=== PATIENT | female | born 1955 | race Two or more races ===

== ENCOUNTER 2024-10-12 09:06 | Inpatient (IN) | payer OTHER, MEDICAID ==
[~2024-10-12] VITALS: Ht 165.1 cm; Wt 69.0 kg
--- NOTE | 2024-10-12 09:15 | ECG ---
[facility] Test Date: 2024-10-12 Test Time: 09:13:46 Pat Name: LINDA SIBLEY Department: ER Room: [address] [place] [address] Gender: F Sas Clinical Programmer: FLORY : 1955 Requested By: LYNNE MERCADO Order Number: [id number] Reading MD: Sadi Esparza Measurements Intervals [place] Rate: 78 P: 20 CA: 152 QRS: -10 QRSD: 87 T: 41 QT: 365 QTc: 416 Interpretive Statements Sinus rhythm Ventricular trigeminy RSR' in V1 or V2, right VCD or RVH Borderline T abnormalities, anterior leads Electronically Signed On 10-12-2024 17:46:40 PDT by Sadi Esparza Please click the below link to view image of tracing.
--- NOTE | 2024-10-12 09:40 | ED.PDOC ---
HPI Comments 68 year old female presents to the ED with a chief complaint of chest pain onset 3 days. Patient states she has been experiencing intermittent chest pain for the past 3 days, pain worsen last night and has been constant since last night. She noticed pain is radiating to LT arm, describes pain as a squeezing/pressure sensation. PMHx HTN, arthritis. Denies shortness of breath, dizziness, headache, blurry vision, nausea, vomiting, diarrhea, abdominal pain, fever, chills. No other symptoms or modifying factors present at this time. Chief Complaint: Chest Pain Time Seen by MD: 09:15 Reviewed Notes: Medications, Allergies Allergies: Coded Allergies: NO KNOWN ALLERGIES (Unverified , 10/12/24) Information Source: Patient Mode of Arrival: Ambulatory Severity: Moderate Timing: Days Duration: Intermittent Prehospital treatment: None Location: Chest (L) Radiation: Arm (L) Quality: Squeezing, Pressure Onset: At Rest Cardiac Risk Factors: HTN PE Risk Factors: None History of: None Modifying Factors: Nothing Associated Signs and Symptoms: Other (Lt arm pain) Past Medical History PAST MEDICAL HISTORY: Arthritis, HTN Surgical History: Denies all surgeries [employer]IO DIVISION CAPTAIN History: No Pertinent [employer]IO [employer] CAPTAIN History Family History Family History: Unknown Social History Smoker: Non-Smoker Alcohol: Denies ETOH Use Drugs: Denies Drug Use Lives In: Home Constitutional: denies: chills, diaphoresis, fatigue, fever, malaise, sweats, weakness, others EENTM: denies: blurred vision, double vision, ear bleeding, ear discharge, ear drainage, ear pain, ear ringing, eye pain, eye redness, hearing loss, mouth pain, mouth swelling, nasal discharge, nose bleeding, nose congestion, nose pain, photophobia, tearing, throat pain, throat swelling, voice changes, others Respiratory: denies: cough, hemoptysis, orthopnea, SOB at rest, shortness of breath, SOB with excertion, stridor, wheezing, others Cardiovascular: reports: chest pain; denies: dizzy spells, diaphoresis, Dyspnea on exertion, edema, irregular heart beat, left arm pain, lightheadedness, palpitations, PND, syncope, others Gastrointestinal: denies: abdomen distended, abdominal pain, blood streaked bowels, constipated, diarrhea, dysphagia, difficulty swallowing, hematemesis, melena, nausea, poor appetite, poor fluid intake, rectal bleeding, rectal pain, vomiting, others Genitourinary: denies: abnormal vagina bleeding, burning, dyspareunia, dysuria, flank pain, frequency, hematuria, incontinence, pain, , vagina discharge, urgency, others Neurological: denies: dizziness, fainting, headache, left sided numbness, left sided weakness, numbness, paresthesia, pre-existing deficit, right sided numbness, right sided weakness, seizure, speech problems, tingling, tremors, weakness, others Musculoskeletal: reports: others (LT arm pain); denies: back pain, gout, joint pain, joint swelling, muscle pain, muscle stiffness, neck pain Integumetry: denies: bruises, change in color, change in hair/nails, dryness, laceration, lesions, lumps, rash, wounds, others Allergic/Immunocompromised: denies: Difficulty Healing, Frequent Infections, Hives, Itching, others Hematologic/Lymphatic: denies: anemia, blood clots, easy bleeding, easy bruising, swollen glands, others Endocrine: denies: excessive hunger, excessive sweating, excessive thirst, excessive urination, flushing, intolerance to cold, intolerance to heat, unexplained weight gain, unexplained weight loss, others Psychiatric: denies: anxiety, bipolar disorder, depression, hopeless, panic disorder, schizophrenia, sleepless, suicidal, others All Other Systems: Reviewed and Negative Physical Exam General Appearance: No Apparent Distress, Normal HEENT: Normal ENT Inspection, Pharynx Normal, TMs Normal Neck: Full Range of Motion, Non-Tender, Normal, Normal Inspection Respiratory: Chest Non-Tender, Lungs Clear, No Accessory Muscle Use, No Respiratory Distress, Normal Breath Sounds Cardiovascular: No Edema, No JVD, No Murmur, No Gallop, Normal Peripheral Pulses, Regular Rate/Rhythm Breast Exam: Deferred Gastrointestinal: No Organomegaly, Non Tender, No Pulsatile Mass, Normal Bowel Sounds, Soft Genitalia: Deferred Pelvic: Deferred Rectal: Deferred Extremities: No calf tenderness, Normal capillary refill, Normal inspection, Normal range of motion, Non-tender, No pedal edema Musculoskeletal : Apperance: Normal 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 Was a procedure done?: No CP Differential Dx Differential Diagnosis: N/A Differential Diagnosis: N/A Differential Diagnosis: Angina, Aortic dissection, Chest Wall Pain, Cholelithiasis, Costochondritis, Esophageal reflux/spasm, Gastritis, Myocardial Infarction, Pericarditis, Pneumonia, Pneumothorax, Pulmonary Embolus X-Ray, Labs, Meds, VS Vital Signs Date Time Temp Pulse Resp B/P (MAP) Pulse Ox O2 Delivery O2 Flow Rate FiO2 10/12/24 11:21 120/55 10/12/24 11:19 98.8 50 16 120/55 (76) 98 98.8 10/12/24 10:06 130/88 10/12/24 09:29 88 10/12/24 09:29 98.0 88 20 130/88 (102) 98 98.0 10/12/24 09:22 98.3 60 19 138/63 (88) 96 98.3 10/12/24 09:13 78 Lab Test 10/12/24 10:03 10/12/24 09:10 Range/Units Troponin I High Sensitivity < 3 L < 3 L </=34 ng/L White Blood Count 6.6 4.4-10.8 10^3/uL Red Blood Count 4.71 4.0-5.20 10^6/uL Hemoglobin 13.7 12.2-16.2 g/dL Hematocrit 41.8 36.0-46.0 % Mean Corpuscular Volume 88.6 80.0-100.0 fL Mean Corpuscular Hemoglobin 29.1 28.0-32.0 pg Mean Corpuscular Hemoglobin Concent 32.9 32.0-36.0 g/dL Red Cell Distribution Width 13.9 11.8-14.3 % Platelet Count 286 140-450 10^3/uL Mean Platelet Volume 7.5 6.9-10.8 fL Neutrophils (%) (Auto) 54.2 37.0-80.0 % Lymphocytes (%) (Auto) 31.9 10.0-50.0 % Monocytes (%) (Auto) 10.9 0.0-12.0 % Eosinophils (%) (Auto) 2.4 0.0-7.0 % Basophils (%) (Auto) 0.6 0.0-2.0 % Neutrophils # (Auto) 3.6 1.6-8.6 10 ^3/uL Lymphocytes # (Auto) 2.1 0.4-5.4 10 ^3/uL Monocytes # (Auto) 0.7 0-1.3 10 ^3/uL Eosinophils # (Auto) 0.2 0-0.8 10 ^3/uL Basophils # (Auto) 0 0-0.2 10 ^3/uL Nucleated Red Blood Cells 0.1 % Sodium Level 143 136-145 mmol/L Potassium Level 4.2 3.5-5.1 mmol/L Chloride Level 108 H 98-107 mmol/L Carbon Dioxide Level 27 20-31 mmol/L Anion Gap 8 5-15 Blood Urea Nitrogen 12 9-23 mg/dL Creatinine 0.64 0.550-1.02 mg/dL Glomerular Filtration Rate Calc 96 >90 mL/min BUN/Creatinine Ratio 18.8 10.0-20.0 Serum Glucose 91 74-106 mg/dL Calcium Level 10.1 8.7-10.4 mg/dL Current Medications Medications (Trade) Dose Ordered Sig/Douglas Route Start Time Stop Time Status Last Admin Aspirin 325 mg ONCE ONCE PO 10/12/24 09:30 10/12/24 09:31 DC 10/12/24 10:05 Nitroglycerin (Ntrostat Sublingual) 0.4 mg ONCE ONCE SL 10/12/24 09:30 10/12/24 09:31 DC 10/12/24 10:06 [place] [id number] Ph: [phone] DIAGNOSTIC IMAGING Diagnostic Imaging Report : [id number] Signed PATIENT: ALBERTO SIBLEYCT: [id number] UNIT: [id number] : 1955 LOC: ER ROOM / BED: / AGE / SEX: 68 / F ADM STATUS: REG ER SERVICE 2 ORDERING PHYSICIAN: LYNNE MERCADO MD PROCEDURE(s): CXRP - CHEST PORTABLE REASON: cp ORDER NUMBER(s): [id number], ACCESSION NUMBER(s): [id number] EXAM: XR Chest, 1 View CLINICAL INDICATION: cp TECHNIQUE: Frontal view of the chest. COMPARISON: None FINDINGS: LUNGS AND PLEURAL SPACES: Unremarkable. No consolidation. No pneumothorax. HEART: Unremarkable. No cardiomegaly. MEDIASTINUM: Unremarkable. Normal mediastinal contour. BONES/JOINTS: Unremarkable. No acute fracture. OTHER FINDINGS: . None. IMPRESSION: No acute cardiopulmonary process. ATED BY: BABAK CHANG MD DICTATED DATE/TIME: 10/12/24 1027 SIGNED BY: BABAK CHANG MD SIGNED DATE/TIME: 10/12/24 1027 CC: Time of 1ST Reevaluation: 09:45 Reevaluation 1ST: Unchanged Time of 2ND Reevaluation: 10:50 Reevaluation 2ND: Improved Patient Education/Counseling: Diagnosis, Treatment, Prognosis, Need For Follow Up Family Education/Counseling: No Family Present Additional Information The following tests were ordered, and results were reviewed by me: TROP-x3, EKG -x3, CBC, XY CHEST, BMP, I reviewed and agreed with the following test results read by other providers: XY CHEST I discussed treatment and results with medical personnel and: Patient pt has symptoms concerning for unstable angina. although her symptoms are improved now, she will need to be admitted for cardiology eval. i will consult [place]. i consulted Dr Katz from [facility] who agreed to admit pt here, since she reports her chest pain is back. #[id number] Departure 1 Departure Time of Disposition: 11:48 Impression: Primary Impression: Unstable angina Disposition: ADMITTED INPATIENT Admit to: [facility] Condition: Serious Discharged With: Self Critical Care Note Critical Care Time?: Yes (55 min-critical care time only) Critical care comment: Due to concerns for patients condition deteriorating, the care required my highest level of attention and readiness to intervene. I assessed the patient, reviewed the medical records, ordered the appropriate tests and treatments, then reassessed for results and responsiveness. I communicated with medical personnel and consultants and formulated a plan of care. Total critical care time excludes any procedures Stability Stability form required: No Heart Score Heart Score: Heart Score Response (Comments) Value History Highly Suspicious 2 EKG Repolarization Disturb 1 Age >65 2 Risk Factors 1 or 2 risk factors 1 Troponin Normal limit 0 Total 6 I personally scribed for LYNNE MERCADO MD ([email or web address]) on 10/12/24 at 09:40. Electronically submitted by Marietta Lira ([email or web address]). I personally scribed for LYNNE [facility]CADO MD ([facility] on 10/12/24 at 10:15. Electronically submitted by Marietta Lira ([email or web address]). I personally scribed for LYNNE MERCADO MD ([facility] on 10/12/24 at 10:35. Electronically submitted by Marietta Lira ([email or web address]). LYNNE MERCADO MD Oct 12, 2024 09:40
[2024-10-12] MEDS: ASPirin 325 MG TAB PO ONE (10:05)
[2024-10-12] MEDS: NITROGLYCERIN 0.4 MG SL TAB SL ONE (10:06)
[2024-10-12 10:29] LABS: Basophils # (auto) 0 10 ^3/uL (0-0.2); Basophils % (auto) 0.6 % (0.0-2.0); Eosinophils # (auto) 0.2 10 ^3/uL (0-0.8); Eosinophils % (auto) 2.4 % (0.0-7.0); Hematocrit 41.8 % (36.0-46.0); Hemoglobin 13.7 g/dL (12.2-16.2); Lymphocytes # (auto) 2.1 10 ^3/uL (0.4-5.4); Lymphocytes % (auto) 31.9 % (10.0-50.0); Mean Corpuscular Hemoglobin 29.1 pg (28.0-32.0); Mean Corpuscular Hgb Conc. 32.9 g/dL (32.0-36.0); Mean Corpuscular Volume 88.6 fL (80.0-100.0); Monocytes # (auto) 0.7 10 ^3/uL (0-1.3); Monocytes % (auto) 10.9 % (0.0-12.0); Neutrophils # (auto) 3.6 10 ^3/uL (1.6-8.6); Neutrophils % (auto) 54.2 % (37.0-80.0); Nucleated Red Blood Cells % 0.1 %; Platelet Count (auto) 286 10^3/uL (140-450); Red Blood Cells 4.71 10^6/uL (4.0-5.20); Red Cell Distribution Width 13.9 % (11.8-14.3); White Blood Cell 6.6 10^3/uL (4.4-10.8)
--- NOTE | 2024-10-12 10:30 | DVH ---
EXAM: XR Chest, 1 View CLINICAL INDICATION: cp TECHNIQUE: Frontal view of the chest. COMPARISON: None FINDINGS: LUNGS AND PLEURAL SPACES: Unremarkable. No consolidation. No pneumothorax. HEART: Unremarkable. No cardiomegaly. MEDIASTINUM: Unremarkable. Normal mediastinal contour. BONES/JOINTS: Unremarkable. No acute fracture. OTHER FINDINGS: . None. IMPRESSION: No acute cardiopulmonary process.
[2024-10-12 10:32] LABS: Potassium 4.2 mmol/L (3.5-5.1); Sodium 143 mmol/L (136-145)
[2024-10-12 10:33] LABS: Carbon Dioxide 27 mmol/L (20-31); Chloride 108 mmol/L (98-107)
[2024-10-12 10:34] LABS: Calcium 10.1 mg/dL (8.7-10.4)
[2024-10-12 10:38] LABS: BUN/Creatinine Ratio 18.8 (10.0-20.0); Blood Urea Nitrogen 12 mg/dL (9-23); Glucose 91 mg/dL (74-106)
[2024-10-12 11:07] LABS: Anion Gap 8 (5-15)
[2024-10-12] MEDS ORDERED: ACETAMINOPHEN 325 MG TAB PO PRN (15:15)
[2024-10-12] MEDS: SODIUM CHLORIDE 0.9% 1,000 ML IV SCH (15:15)
[2024-10-12] MEDS ORDERED: NITROGLYCERIN 0.4 MG SL TAB SL PRN (15:15)
[2024-10-12] MEDS ORDERED: MORPHINE SULFATE INJ 2 MG/ml SYRG IV PRN (15:15)
[2024-10-12] MEDS ORDERED: LOSA-534 PO (15:18)
[2024-10-12] MEDS ORDERED: IBUP-1455 PO (15:18)
[2024-10-12] MEDS ORDERED: ACET650T2 PO (15:18)
[2024-10-12] MEDS ORDERED: CIPR1SUS8 (15:18)
--- NOTE | 2024-10-12 15:20 | DVHHP2 ---
History of Present Illness Reason for Visit: Chest pain History of Present Illness This is a 68-year-old female with history of hypertension, and arthritis presents to ED with chief complaint of intermittent chest pain x3 days with radiation down her left arm associated with shortness of breaths and nausea that progressively got worse today. Upon evaluation, the patient denied recent stress, injury or trauma to her chest. The patient denied ever experiencing this in the past, no previous cardiac workup. The patient states concern about her chest pain and would like to be further evaluated and treated. The patient will be admitted under hospitalist care to the telemetry unit for continuous monitoring. The patient denies fever, chills, headache, dizziness, palpitation, , nausea, vomiting, abdominal pain, diarrhea, constipation and other associated symptoms. The plan has been discussed with the patient and primary RN in which all questions concerns have been addressed. Cardiovascular: HTN Musculoskeletal: Other (Arthritis) Past Surgical History: None Family History: None ALCOHOL: none Drugs: None Lives: with Family Domestic Violence: Neg Review of Systems Respiratory: Shortness of breath Cardiovascular: Chest Pain Gastrointestinal: Nausea Allergies: Coded Allergies: NO KNOWN ALLERGIES (Unverified , 10/12/24) Medications Current Medications Medications Dose Ordered Sig/Douglas Route Start Time Stop Time Status Last Admin Dose Admin Aspirin 81 mg DAILY PO 10/13/24 10:00 UNV Sodium Chloride 1,000 ml @ 75 mls/hr [id number] IV 10/12/24 15:15 UNV Ondansetron HCl 4 mg Q4HP PRN IV 10/12/24 15:15 UNV Enoxaparin Sodium 40 mg DAILY SC 10/13/24 10:00 UNV Acetaminophen 650 mg Q6HP PRN PO 10/12/24 15:15 UNV Nitroglycerin 0.4 mg Q5MINP PRN SL 10/12/24 15:15 UNV Morphine Sulfate 2 mg Q30M PRN IV 10/12/24 15:15 UNV Exam Vital Signs Vital Signs Date Time Temp Pulse Resp B/P (MAP) Pulse Ox O2 Delivery O2 Flow Rate FiO2 10/12/24 13:39 98.1 53 12 106/59 (75) 99 98.1 General Appearance: Alert, Oriented X3, Cooperative, No acute distress HEENT: Atraumatic, PERRLA, Mucous membr. moist/pink Respiratory: Clear to auscultation, Normal air movement Cardiovascular: Regular rate, Normal S1, Normal S2, No murmurs Abdominal: Normal bowel sounds, Soft, No tenderness, No hepatospenomegaly, No masses Extremities: No clubbing, No cyanosis, No edema, Normal pulses, No tenderness/swelling Skin: No rashes, No breakdown Neuro: Normal gait, Normal speech, Strength at 5/5 X4 ext, Normal tone, Sensation intact, Cranial nerves 3-12 NL, Reflexes 2+ Psych/Mental Status: Mental status NL Labs/Xrays Labs Test 10/12/24 10:03 10/12/24 09:10 Range/Units Troponin I High Sensitivity < 3 L </=34 ng/L White Blood Count 6.6 4.4-10.8 10^3/uL Red Blood Count 4.71 4.0-5.20 10^6/uL Hemoglobin 13.7 12.2-16.2 g/dL Hematocrit 41.8 36.0-46.0 % Mean Corpuscular Volume 88.6 80.0-100.0 fL Mean Corpuscular Hemoglobin 29.1 28.0-32.0 pg Mean Corpuscular Hemoglobin Concent 32.9 32.0-36.0 g/dL Red Cell Distribution Width 13.9 11.8-14.3 % Platelet Count 286 140-450 10^3/uL Mean Platelet Volume 7.5 6.9-10.8 fL Neutrophils (%) (Auto) 54.2 37.0-80.0 % Lymphocytes (%) (Auto) 31.9 10.0-50.0 % Monocytes (%) (Auto) 10.9 0.0-12.0 % Eosinophils (%) (Auto) 2.4 0.0-7.0 % Basophils (%) (Auto) 0.6 0.0-2.0 % Neutrophils # (Auto) 3.6 1.6-8.6 10 ^3/uL Lymphocytes # (Auto) 2.1 0.4-5.4 10 ^3/uL Monocytes # (Auto) 0.7 0-1.3 10 ^3/uL Eosinophils # (Auto) 0.2 0-0.8 10 ^3/uL Basophils # (Auto) 0 0-0.2 10 ^3/uL Nucleated Red Blood Cells 0.1 % Sodium Level 143 136-145 mmol/L Potassium Level 4.2 3.5-5.1 mmol/L Chloride Level 108 H 98-107 mmol/L Carbon Dioxide Level 27 20-31 mmol/L Anion Gap 8 5-15 Blood Urea Nitrogen 12 9-23 mg/dL Creatinine 0.64 0.550-1.02 mg/dL Glomerular Filtration Rate Calc 96 >90 mL/min BUN/Creatinine Ratio 18.8 10.0-20.0 Serum Glucose 91 74-106 mg/dL Calcium Level 10.1 8.7-10.4 mg/dL ORDERING PHYSICIAN: LYNNE MERCADO MD PROCEDURE(s): CXRP - CHEST PORTABLE REASON: cp ORDER NUMBER(s): [id number], ACCESSION NUMBER(s): [id number] EXAM: XR Chest, 1 View CLINICAL INDICATION: cp TECHNIQUE: Frontal view of the chest. COMPARISON: None FINDINGS: LUNGS AND PLEURAL SPACES: Unremarkable. No consolidation. No pneumothorax. HEART: Unremarkable. No cardiomegaly. MEDIASTINUM: Unremarkable. Normal mediastinal contour. BONES/JOINTS: Unremarkable. No acute fracture. OTHER FINDINGS: . None. IMPRESSION: No acute cardiopulmonary process. ATED BY: BABAK CHANG MD DICTATED DATE/TIME: 10/12/24 102 SIGNED BY: BABAK CHANG MD SIGNED DATE/TIME: 10/12/24 102 CC: Assessment/Plan Assessment/Plan Chest pain----patient presents to ED with chief complaint of intermittent chest pain x3 days associated with shortness of breaths and nausea No recent life stressor, injury or trauma to chest No drug use No previous cardiac workup Admit to telemetry unit for continuous monitoring ACS protocol Reviewed CBC which is normal Reviewed BMP which is normal Cardiac enzyme negative x2 Reviewed 12 lead EKG shows trigeminy Reviewed chest x-ray which is normal Aspirin 325 mg p.o. given in the ER Aspirin 81 mg daily Echocardiogram pending IV hydration We will consider to consult assistant hairstylist if further evaluation and recommendation is needed ? PE Patient reports complaint of shortness of breaths associated with chest pain Patient reports more sedentary than usual D-dimer pending If elevated we will consider CT chest to rule out PE Bilateral Doppler study pending Albuterol p.r.n. q.2h hours for shortness of breaths Hypertension Continue to monitor BP Arthritis Ibuprofen 600 mg bid p.r.n. as needed for pain Reconcile home meds DVT prophylaxis PUD prophylaxis Labs in a.m. Discussed plan of care with the patient and primary RN in which all questions concerns have been addressed Plan discussed with: Patient My Orders Orders - XIN FISHER Procedure Category Date Status Time Aspirin Tablet PHA 10/13/24 Logged 10:00 Admit ADMIT 10/12/24 Transmitted 15:15 2 Gm Sodium Diet DIET 10/12/24 Transmitted Dinner Sodium Chloride 0.9% PHA 10/12/24 Logged 15:15 Ondansetron Hcl PHA 10/12/24 Logged (Zofran) 15:15 Enoxaparin Sodium PHA 10/13/24 Logged (Lovenox) 10:00 Complete Blood Count LAB 10/13/24 Verified 04:00 Comprehensive LAB 10/13/24 Verified Metabolic Panel 04:00 Echo 2d Mode Cardiac US 10/12/24 Logged DOP 15:15 Condition: Fair [facility] 10/12/24 In Process 15:15 Acetaminophen Tablet [facility] 10/12/24 Logged (Tylenol Tablet) 15:15 Bedrest With Bathroom [facility] 10/12/24 In Process Privileg 15:15 Nitroglycerin [facility] 10/12/24 Logged Sublingual (Ntrostat 15:15 Morphine Sulfate [facility] 10/12/24 Logged Injection 15:15 Stat Ekg For Chest [facility] 10/12/24 In Process Pain 15:15 Notify Md Of Changes [facility] 10/12/24 In Process From Base 15:15 Zipper Lining Folder For [facility] 10/12/24 In Process 24 Hours 15:15 Emergency Dysrhythmia [facility] 10/12/24 In Process Protocol 15:15 Rhythm Strips Once [facility] 10/12/24 In Process Every Shift 15:15 Oxygen By Nasal RT 10/12/24 Transmitted Cannula 15:15 Losartan Tablet PHA 10/13/24 Transmitted (Cozaar Tablet) 10:00 Date of Service: Oct 12, 2024 Billing Provider: XIN FISHER Common Visit Codes: [id number] INP/OBS CARE (HIGH) XIN FISHER Oct 12, 2024 15:20
[2024-10-12] MEDS ORDERED: ALBUTEROL SULF 2.5 MG/0.5ML(0.5%) NEB SOLN NEB PRN (15:45)
[2024-10-12] MEDS ORDERED: IBUPROFEN 800 MG TAB PO PRN (16:00)
--- NOTE | 2024-10-12 17:10 | DVH ---
US BiLat Lower DVT HISTORY: r/o dvt COMPARISON: None TECHNIQUE: Duplex Doppler evaluation of the deep venous system of the lower extremity from the common femoral veins, superficial femoral vein, great saphenous vein, deep femoral vein, popliteal vein, an d calf veins, including color Doppler and spectral/pulsed waveform analysis, was performed. FINDINGS: Right: - Common femoral vein: Compressible - Deep femoral vein: Compressible - Femoral vein: Compress ible - Popliteal vein: Compressible - Trifurcation: Waveforms present - Posterior tibial vein: Wavefo riccardo present Left: - Common femoral vein: Compressible - Deep femoral vein: Compressible - Femoral vein: Compressi ble - Popliteal vein: Compressible - Trifurcation: Waveforms present - Posterior tibial vein: Wavefor ms presentOther: Nothing IMPRESSION: 1. No right or left lower extremity deep venous thrombosis.
[2024-10-12 20:00] VITALS: PULSE 100
[2024-10-12 20:10] VITALS: BP 147/74; PULSE 86; RESP 18; TEMP 99.1; O2SAT 98
[2024-10-12 20:19] VITALS: PULSE 95; RESP 16; O2SAT 97
[2024-10-12] MEDS ORDERED: HYDROcodone-ACET 5/325MG TAB PO PRN (20:45)
[2024-10-12 21:00] VITALS: BP 108/68; PULSE 103; RESP 18; TEMP 98.5; O2SAT 99
[2024-10-12] MEDS: MORPHINE SULFATE INJ 2 MG/ml SYRG IV PRN (21:25)
[2024-10-12 21:32] VITALS: BP 147/74; PULSE 97; RESP 18; O2SAT 97
[2024-10-13] VITALS (9 sets, daily range): BP systolic 105–125; BP diastolic 57–69; PULSE 68–85; RESP 15–19; TEMP 97.8–98.4; O2SAT 94–100
[2024-10-13 07:26] LABS: Basophils # (auto) 0 10 ^3/uL (0-0.2); Basophils % (auto) 0.7 % (0.0-2.0); Eosinophils # (auto) 0.1 10 ^3/uL (0-0.8); Eosinophils % (auto) 2.4 % (0.0-7.0); Hematocrit 35.5 % (36.0-46.0); Hemoglobin 11.9 g/dL (12.2-16.2); Lymphocytes # (auto) 1.8 10 ^3/uL (0.4-5.4); Lymphocytes % (auto) 34.3 % (10.0-50.0); Mean Corpuscular Hemoglobin 29.4 pg (28.0-32.0); Mean Corpuscular Hgb Conc. 33.6 g/dL (32.0-36.0); Mean Corpuscular Volume 87.7 fL (80.0-100.0); Monocytes # (auto) 0.7 10 ^3/uL (0-1.3); Monocytes % (auto) 14.3 % (0.0-12.0); Neutrophils # (auto) 2.5 10 ^3/uL (1.6-8.6); Neutrophils % (auto) 48.3 % (37.0-80.0); Platelet Count (auto) 237 10^3/uL (140-450); Red Blood Cells 4.05 10^6/uL (4.0-5.20); Red Cell Distribution Width 13.6 % (11.8-14.3); White Blood Cell 5.1 10^3/uL (4.4-10.8)
[2024-10-13 07:46] LABS: Albumin 4.2 g/dL (3.2-4.8); Alkaline Phosphatase 73 U/L (46-116); Anion Gap 10 (5-15); BUN/Creatinine Ratio 24.6 (10.0-20.0); Bilirubin, Total 0.7 mg/dL (0.2-1.0); Blood Urea Nitrogen 14 mg/dL (9-23); Carbon Dioxide 25 mmol/L (20-31); Chloride 107 mmol/L (98-107); Glucose 99 mg/dL (74-106); Potassium 3.6 mmol/L (3.5-5.1); Sodium 142 mmol/L (136-145); Total Protein 6.4 g/dL (5.7-8.2)
[2024-10-13 07:48] LABS: Alanine Aminotransferase < 9 U/L (7-40); Aspartate Aminotransferase < 8 U/L (13-40)
[2024-10-13] MEDS: ASPirin 81 mg TAB PO SCH (08:17)
[2024-10-13 09:48] LABS: INR 1.03 (0.9-1.15); Partial Thromboplastin Time 28.8 SEC (24.5-34.5); Prothrombin Time 10.9 sec (9.3-11.8)
[2024-10-13] MEDS: ENOXAPARIN SOD 40 MG/0.4 ML SYRINGE SC SCH (11:02)
[2024-10-13] MEDS: LOSARTAN POTASSIUM 25 MG TAB PO SCH (11:04)
[2024-10-13] MEDS: ONDANSETRON HCL 4 MG/2 ML VIAL IV PRN (12:17)
[2024-10-13] MEDS: KETOROLAC TROMETH 30 MG/ML 1ML VIAL IV ONE (12:42)
--- NOTE | 2024-10-13 13:08 | DVH ---
EXAM: XY R SHOULDER 2+ VIEW XRAY, XY L SHOULDER 2+ VIEW XRAY CLINICAL INDICATION: osteo vs RA TECHNIQUE: XY R SHOULDER 2+ VIEW XRAY, XY L SHOULDER 2+ VIEW XRAY Comparison: None FINDINGS/IMPRESSION: There is no evidence of acute fracture or dislocation. MODERATE GLENOHUMERAL OSTEOARTHRITIS BILATERALLY The alignment is anatomical. There is no radiopaque foreign body.
[2024-10-13 14:52] LABS: Erythrocyte Sedimentation Rate 38 mm/hr (0-20)
--- NOTE | 2024-10-13 14:54 | DVHSR ---
APPROVED REPORT EXAM: LIMITED Two-dimensional and M-mode echocardiogram with Doppler and color Doppler. Blood Pressure: 125/66 mmHg INDICATION Unstable Angina RISK FACTORS Height: 5' 5", Weight: 151 DIMENSIONS LVDd4.1 (3.8-5.7cm)LA (2D)3.1 (1.9-4.0cm)Aortic Root3.1 (2.0-3.7cm) LVDs3.1 (2.5-4.0cm)LA (MM) (1.9-4.0cm)Aortic Cusp Exc1.8 (1.5-2.0cm) EF (%) 50.0 (55-70%)Rt. Atrium3.7 (1.9-4.0cm)Asc. Aorta cm IVSd0.8 (0.7-1.1cm)RV (D) (1.8-2.4cm) PWd0.9 (0.7-1.1cm) Mitral Valve MitralMitral Stenosis E wave0.70m/sMV Mean GR.mmHg A wave0.80m/sMV Peak GR.mmHg E/A ratio0.92D MVAcm2 Aortic Valve Aortic ValveAortic Stenosis V10.50m/Finesse Mean GR.3mmHg V21.20m/Finesse Peak GR.6mmHg LVOT Diameter2.1 (1.8-2.4cm)Doppler AVA1.44cm2 Pulmonic Valve V20.40m/s Other Information Quality : Technically LimitedRhythm : Technically limited study due to body habitus. Conclusion Technically good study sinus rhythm. Left ventricular enlargement. Aortic root and left atrial enlargement. Valves are structurally normal. EF of 40% with global hypokinesis Dopplers unremarkable. Small pericardial fat pad. No PE masses or vegetations
--- NOTE | 2024-10-13 15:52 | DVHPNRES ---
Progress Note Date Seen: Oct 13, 2024 Resident Creating Document: SEN ERWIN RESIDENT Medical Necessity Reason Pt with a Central, PICC or Fol: No Subjective Review of Systems Ms Romero is a 68-year-old female with past medical history of hypertension and arthritis diagnosed 7 months back, who presented to the ER with a chief complaint of bilateral shoulder and chest pain. Patient reports that she was diagnosed with arthritis 7 months back and since then her pain is inadequately controlled. She takes Tylenol and ibuprofen at home. She reports bilateral shoulder pain which is worse in the morning, but does note decreased as the day goes on. The pain is sharp in nature in his constant. Associated features include nausea but denies shortness of breaths, palpitations, reports with the pain is unrelated to exertion. . On admission, patient was vitally stable, CBC, CMP unremarkable. Tropes WNL, BNP 19, D-dimer was 0.5. Lower extremity Doppler was unremarkable. Chest x- ray WNL. ESR was increased at 38, CRP 4. Rheumatoid factor and EKTA panel ordered. Bilateral shoulder x-ray revealed moderate glenohumeral osteoarthritis bilaterally. Echocardiogram showed EF 40% with global hypokinesis. Aortic root and left atrial enlargement. Past medical history: Hypertension, arthritis Home medications: Losartan 50 mg, ibuprofen, Tylenol Patient seen and examined at the bedside. Reports bilateral shoulder pain. IV Toradol administered. Objective vital signs Vital Sign Date Time Temp Pulse Resp B/P (MAP) Pulse Ox O2 Delivery O2 Flow Rate FiO2 10/13/24 12:33 97.8 74 15 116/64 (81) 94 97.8 10/13/24 08:00 Room Air* 0 21 Total Intake and Output 10/12/24 10/12/24 10/13/24 15:00 23:00 07:00 Intake Total 230 ml Balance 230 ml medications Current Medications Medications Dose Ordered Sig/Douglas Route Start Time Stop Time Status Last Admin Dose Admin Aspirin 81 mg DAILY PO 10/13/24 10:00 10/13/24 08:17 81 MG Sodium Chloride 1,000 ml @ 75 mls/hr [id number] IV 10/12/24 15:15 10/13/24 03:29 75 MLS/HR Ondansetron HCl 4 mg Q4HP PRN IV 10/12/24 15:15 10/13/24 12:17 4 MG Enoxaparin Sodium 40 mg DAILY SC 10/13/24 10:00 10/13/24 11:02 40 MG Acetaminophen 650 mg Q6HP PRN PO 10/12/24 15:15 Hold Nitroglycerin 0.4 mg Q5MINP PRN SL 10/12/24 15:15 Morphine Sulfate 2 mg Q30M PRN IV 10/12/24 15:15 Losartan Potassium 75 mg DAILY PO 10/13/24 10:00 10/13/24 11:04 75 MG Albuterol 2.5 mg Q2HPRN PRN NEB 10/12/24 15:45 Acetaminophen/ Hydrocodone Bitart 1 tab Q6HPRN PRN PO 10/12/24 20:45 Morphine Sulfate 2 mg Q4HPRN PRN IV 10/12/24 20:45 10/13/24 08:15 2 MG Examination Patient lying in bed, in no acute distress General: Well-built, afebrile, palor, mucosae are moist Cardiovascular: Regular S1 and S2. No murmurs, gallops or rubs. No JVD elevation. No pedal edema Respiratory: Normal B/L air entry on room air. Clear lung sounds on auscultation Abdomen: Soft, nontender, nondistended, normoactive bowel sounds, no rebound tenderness, no organomegaly, no masses Genitourinary: Deferred MSK/skin: Mobilizes 4 limbs. Skin is dry and warm Neurological: No motor, no sensitive deficits, normal speech. Pupils are isocoric and reactive. Psych/Mental Status: A/Ox3 laboratory and microbiology Laboratory Tests 10/13/24 06:35 Test 10/13/24 06:35 Range/Units Serum Glucose 99 74-106 mg/dL Labs and/or images reviewed: Labs reviewed by me, Image(s) reviewed by me Problem List/Assessment/Plan Problem List/Assessment/Plan Intractable shoulder pain secondary to bilateral glenohumeral osteoarthritis Bilateral glenohumeral osteoarthritis Bilateral shoulder x-ray shows moderate glenohumeral osteoarthritis ESR CRP elevated IV Toradol administered Chest pain, rule out ACS Systolic congestive heart failure-newly diagnosed-NYHA class 2 Hypertension Echocardiogram completed, shows EF 40%. Bilateral atrial enlargement. Continue the home medication losartan 50 mg, started metoprolol 25 mg succinate daily, spironolactone 25 mg daily, Jardiance 10 mg daily Lasix 20 mg IV daily Cardiology consulted Ruled out DVT lower extremity Lower extremity Doppler unremarkable DVT prophylaxis: Lovenox 40 mg sc daily GERD prophylaxis: Pantoprazole 40 mg daily Plan discussed with patient in which all questions have been answered Goals of care discussed with patient more than 30 minute, full code status Case discussed with Lata Plan discussed with: Patient My Orders My Orders Orders - SEN ERWIN Procedure Category Date Status Time Urinalysis LAB 10/13/24 Logged 08:58 Vitamin B12 LAB 10/13/24 In Process 08:58 Vitamin D, 25-Hydroxy LAB 10/13/24 In Process 08:58 Electrocardigram EKG 10/13/24 Logged 08:58 Ekta; Comprehensive LAB 10/13/24 In Process Panel 11:43 Rheumatoid Arthritis LAB 10/13/24 In Process Factor 11:43 R Shoulder 2+ View XY 10/13/24 Resulted Xray 11:43 L Shoulder 2+ View XY 10/13/24 Resulted Xray 11:43 Date of Service: Oct 13, 2024 Billing Provider: AILYN MAS DO Common Visit Codes: [id number] INP/OBS CARE(HIGH) SEN ERWIN RESIDENT Oct 13, 2024 15:51 AILYN MAS DO Oct 14, 2024 07:02
[2024-10-13] MEDS ORDERED: ACETAMINOPHEN 325 MG TAB PO PRN (16:00)
[2024-10-13] MEDS ORDERED: KETOROLAC TROMETH 30 MG/ML 1ML VIAL IV PRN (16:00)
[2024-10-13] MEDS: ACETAMINOPHEN 325 MG TAB PO ONE (18:25)
[2024-10-13] MEDS: FUROSEMIDE 20 MG/2 ML VIAL IV ONE (18:26)
[2024-10-13] MEDS: SPIRONOLACTONE 25 MG TAB PO ONE (18:27)
[2024-10-13] MEDS: METOPROLOL SUCCINATE XL 50 MG TAB PO ONE (18:27)
[2024-10-13 18:45] LABS: Urine Bacteria None Seen /hpf (None Seen)
[2024-10-13 18:52] LABS: Urine Blood 2+ /uL (Negative); Urine Budding Yeast OCCASIONAL /hpf (None Seen); Urine Clarity Clear (Clear); Urine Color Colorless (Yellow); Urine Mucus FEW (None Seen); Urine Protein, UAD Negative (Negative); Urine Specific Gravity 1.009 (1.001-1.035); Urine Squamous Epithelial Cell FEW /hpf (<5); Urine Urobilinogen Normal (Negative); Urine WBC 2 /HPF (0-5)
[2024-10-14] VITALS (8 sets, daily range): BP systolic 106–128; BP diastolic 55–68; PULSE 61–85; RESP 16–18; TEMP 97.7–98.5; O2SAT 94–99
[2024-10-14 05:44] LABS: Basophils # (auto) 0 10 ^3/uL (0-0.2); Basophils % (auto) 0.4 % (0.0-2.0); Eosinophils # (auto) 0.2 10 ^3/uL (0-0.8); Eosinophils % (auto) 4.2 % (0.0-7.0); Hematocrit 37.3 % (36.0-46.0); Lymphocytes # (auto) 2.1 10 ^3/uL (0.4-5.4); Mean Corpuscular Hemoglobin 30.6 pg (28.0-32.0); Mean Corpuscular Hgb Conc. 34.8 g/dL (32.0-36.0); Mean Corpuscular Volume 87.8 fL (80.0-100.0); Monocytes # (auto) 0.7 10 ^3/uL (0-1.3); Monocytes % (auto) 14.3 % (0.0-12.0); Neutrophils # (auto) 1.9 10 ^3/uL (1.6-8.6); Neutrophils % (auto) 38.1 % (37.0-80.0); Nucleated Red Blood Cells % 0.1 %; Platelet Count (auto) 264 10^3/uL (140-450); Red Blood Cells 4.25 10^6/uL (4.0-5.20); Red Cell Distribution Width 13.6 % (11.8-14.3); White Blood Cell 4.9 10^3/uL (4.4-10.8)
[2024-10-14 05:57] LABS: Albumin 4.5 g/dL (3.2-4.8); Alkaline Phosphatase 75 U/L (46-116); Anion Gap 7 (5-15); BUN/Creatinine Ratio 21.8 (10.0-20.0); Blood Urea Nitrogen 17 mg/dL (9-23); Calcium 10.2 mg/dL (8.7-10.4); Carbon Dioxide 30 mmol/L (20-31); Chloride 105 mmol/L (98-107); Glucose 76 mg/dL (74-106); Magnesium 2.3 mg/dL (1.6-2.6); Sodium 142 mmol/L (136-145); Total Protein 6.9 g/dL (5.7-8.2)
[2024-10-14 05:58] LABS: Bilirubin, Total 0.5 mg/dL (0.2-1.0)
[2024-10-14 06:00] LABS: Alanine Aminotransferase 9 U/L (7-40); Aspartate Aminotransferase 10 U/L (13-40)
--- NOTE | 2024-10-14 08:07 | ECG ---
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
[2024-10-14] MEDS: EMPAGLIFLOZIN 10 MG TAB PO SCH (09:47)
[2024-10-14] MEDS: FUROSEMIDE 20 MG/2 ML VIAL IV SCH (09:47)
[2024-10-14] MEDS: SPIRONOLACTONE 25 MG TAB PO SCH (09:47)
[2024-10-14] MEDS: METOPROLOL SUCCINATE XL 50 MG TAB PO SCH (09:49)
--- NOTE | 2024-10-14 12:23 | DVHINCON2 ---
Date Seen: Oct 14, 2024 Referring Physician MD Jeromy resident Reason for Consultation Chest pain, new onset CHF 40% History of Present Illness This is a 68-year-old female patient who presents to the emergency room with chief complaint of chest pain. The patient reports that the chest pain began approximately three days prior to emergency room arrival. She describes the chest pain as unprovoked, intermittent, pressure-like in nature, and substernal with radiation down her left arm. Associated symptoms include shortness of breath. Initial twelve lead electrocardiogram reveals normal sinus rhythm with trigeminy PVCs. Troponin levels have been negative. Significant past medical history includes hypertension, dyslipidemia, and arthritis. The patient denies any previous cardiac workup in the past. Past Medical History Past medical history reviewed. No other significant than mentioned above. Past Surgical History Denies Family History: Diabetes mellitus G8 MOTHER Hypertension G8 MOTHER Family History Family history reviewed. Social History Denies the use of tobacco, alcohol or illicit drugs. Allergies: Coded Allergies: NO KNOWN ALLERGIES (Unverified , 10/12/24) Home Meds Reported Medications Ciprofloxacin-Dexamethasone (Ciprofloxacin/Dexamethaso 0.3-0.1 %) 1 Marie Marie 10/12/24 Losartan Potassium (Losartan Potassium) 50 Mg Tab, 1.5 TAB PO DAILY 10/12/24 Ibuprofen Micronized (Ibuprofen) 800 Mg Tab, TAB PO 10/12/24 Acetaminophen (Goodsense Arthritis Pain) 650 Mg Tab, PO 10/12/24 Home Meds Home medications reviewed. Current Medications Current Medications Medications (Trade) Dose Ordered Sig/Douglas Route PRN Reason Start Time Stop Time Status Last Admin Metoprolol Succinate (Toprol Xl) 25 mg DAILY PO 10/14/24 10:00 10/14/24 09:49 Furosemide (Lasix Injection) 20 mg DAILY IV 10/14/24 10:00 10/14/24 09:47 Spironolactone (Aldactone) 25 mg DAILY PO 10/14/24 10:00 10/14/24 09:47 Empaglifozin (Jardiance) 10 mg DAILY PO 10/14/24 10:00 10/14/24 09:47 Ketorolac Tromethamine (Toradol Injection) 15 mg Q6HPRN PRN IV MODERATE PAIN (4-6 PAIN SCALE) 10/13/24 16:00 10/18/24 15:59 Acetaminophen (Tylenol Tablet) 650 mg Q4HP PRN PO MILD PAIN (1-3 PAIN SCALE) 10/13/24 16:00 Review of Systems Constitutional: No symptom reported Ears, Nose, & Throat: No symptom reported Eyes: No symptom reported Neurological: No symptoms reported Pulmonary/Respiratory: Shortness of breath Cardiovascular: Chest pain Gastrointestinal: No symptom reported Genitourinary: No symptom reported Musculoskeletal: No symptom reported Skin: No symptom reported Psychiatric: No symptom reported Endocrine: No symptom reported Hematologic/Lymphatic: No symptom reported Vital Signs Vital Signs Date Time Temp Pulse Resp B/P (MAP) Pulse Ox O2 Delivery O2 Flow Rate FiO2 10/14/24 11:35 96 Room Air* 0 21 10/14/24 09:49 71 114/68 10/14/24 09:00 98.3 18 98.3 Physical Exam General Appearance: Cooperative. Well-developed. Well-nourished. No acute distress. Pulmonary/Respiratory: Clear, bilateral breaths sounds. Cardiovascular/Chest: Regular rate and rhythm. Peripheral Pulses: 2+ Radial (R). 2+ Radial (L). 2+ Pedal (R). 2+ Pedal (L) Abdominal Exam: Normal bowel sounds. Ankle Exam: Negative ankle edema Lower extremities: Negative lower extremity edema Neuro/Mental Status: A/OX4, coherent. Thoughts/Psych: Normal thought pattern. Appropriate mood and affect. Good judgment and insight. Appearance: No acute distress. Skin Exam: Normal inspection. Normal color. Warm and dry. Labs/Diagnostic Data Labs Test 10/14/24 05:06 10/13/24 18:30 10/13/24 13:42 10/13/24 06:35 Range/Units White Blood Count 4.9 4.4-10.8 10^3/uL Red Blood Count 4.25 4.0-5.20 10^6/uL Hemoglobin 13.0 12.2-16.2 g/dL Hematocrit 37.3 36.0-46.0 % Mean Corpuscular Volume 87.8 80.0-100.0 fL Mean Corpuscular Hemoglobin 30.6 28.0-32.0 pg Mean Corpuscular Hemoglobin Concent 34.8 32.0-36.0 g/dL Red Cell Distribution Width 13.6 11.8-14.3 % Platelet Count 264 140-450 10^3/uL Mean Platelet Volume 7.4 6.9-10.8 fL Neutrophils (%) (Auto) 38.1 37.0-80.0 % Lymphocytes (%) (Auto) 43.0 10.0-50.0 % Monocytes (%) (Auto) 14.3 H 0.0-12.0 % Eosinophils (%) (Auto) 4.2 0.0-7.0 % Basophils (%) (Auto) 0.4 0.0-2.0 % Neutrophils # (Auto) 1.9 1.6-8.6 10 ^3/uL Lymphocytes # (Auto) 2.1 0.4-5.4 10 ^3/uL Monocytes # (Auto) 0.7 0-1.3 10 ^3/uL Eosinophils # (Auto) 0.2 0-0.8 10 ^3/uL Basophils # (Auto) 0 0-0.2 10 ^3/uL Nucleated Red Blood Cells 0.1 % Sodium Level 142 136-145 mmol/L Potassium Level 4.0 3.5-5.1 mmol/L Chloride Level 105 98-107 mmol/L Carbon Dioxide Level 30 20-31 mmol/L Anion Gap 7 5-15 Blood Urea Nitrogen 17 9-23 mg/dL Creatinine 0.78 # 0.550-1.02 mg/dL Glomerular Filtration Rate Calc 83 >90 mL/min BUN/Creatinine Ratio 21.8 H 10.0-20.0 Serum Glucose 76 74-106 mg/dL Calcium Level 10.2 8.7-10.4 mg/dL Magnesium Level 2.3 1.6-2.6 mg/dL Total Bilirubin 0.5 0.2-1.0 mg/dL Aspartate Amino Transferase (AST) 10 L 13-40 U/L Alanine Aminotransferase (ALT) 9 7-40 U/L Alkaline Phosphatase 75 46-116 U/L Total Protein 6.9 5.7-8.2 g/dL Albumin 4.5 3.2-4.8 g/dL Urine Color Colorless Yellow Urine Clarity Clear Clear Urine pH 7.0 5.0-9.0 Urine Specific [place] 1.009 1.001-1.035 Urine Protein Negative Negative Urine Ketones Negative Negative Urine Blood 2+ H Negative /uL Urine Nitrite Negative Negative Urine Bilirubin Negative Negative Urine Urobilinogen Normal Negative mg/dL Urine Leukocyte Esterase 2+ Negative /uL Urine RBC 3 0 - 4 /hpf Urine Microscopic WBC 2 0-5 /HPF Urine Squamous Epithelial Cells Few <5 /hpf Urine Bacteria None seen None Seen /hpf Urine Mucus Few None Seen Urine Yeast (Budding) Occasional None Seen /hpf Urine Glucose Normal Normal mg/dL Erythrocyte Sedimentation Rate 38 H 0-20 mm/hr Prothrombin Time 10.9 9.3-11.8 sec Prothrombin Time INR 1.03 0.9-1.15 Activated Partial Thromboplast Time 28.8 24.5-34.5 SEC Hemoglobin A1c 5.5 <5.7 % A1C Troponin I High Sensitivity 3 L </=34 ng/L C-Reactive Protein High Sensitivity 4.16 H <1.0 mg/dL B-Type Natriuretic Peptide 19.47 0-100 pg/mL Vitamin B12 Level 681 211-911 pg/mL Vitamin D 25-Hydroxy 25.4 L 30.0-100 ng/mL Thyroid Stimulating Hormone (TSH) 1.43 0.55-4.78 uIU/mL Test 10/12/24 16:03 Range/Units D-Dimer, Quantitative 0.54 H 0.0-0.49 mg/L FEU Assessment Chest pain, rule out coronary ischemia Chronic compensated HFrEF, NYHA class II, newly diagnosed Hypertension Dyslipidemia Arthritis Plan/Recommendation We will continue with the following plan/recommendations (Dr. Kong): * Transthoracic echocardiogram reveals EF 40% with global hypokinesis * Initiate guideline directed medical therapy for CHF as tolerated * Chest pain protocol * HEART score: 4 points (moderate score) * Blood pressure control and lipid-lowering agent * Close Cardiac surveillance * Nuclear stress test Case discussed with . We will proceed with scheduling the patient for a nuclear stress test at first availability. Thank you for allowing us to care for this patient. Please call with any questions or concerns. Critical care time spent: 40 minutes This medical document was created using an electronic medical record system with voice recognition software and computerized dictation system. Although this document has been carefully reviewed, there might still be some phonetic and typographical errors. Occasional wrong-word or ``sound-alike substitutions may have occurred due to the inherent limitations of voice recognition software. These areas are purely typographical due to imperfections of the software programs and do not reflect any compromise in the patient's medical care. Please read the chart carefully and recognize, using context, where these substitutions have occurred. Plan discussed with: Patient NYHA Physical activity limitations: NA Date of Service: Oct 14, 2024 Billing Provider: LADONNA REYES Cardiology Common Codes: [id number] INP/OBS CARE (High) Cardiology Consultation Codes: [id number] CONSULT <45MIN LADONNA REYES Oct 14, 2024 12:23
--- NOTE | 2024-10-14 13:29 | DVHPNRES ---
Progress Note Date Seen: Oct 14, 2024 Resident Creating Document: SEN ERWIN RESIDENT Medical Necessity Reason Pt with a Central, PICC or Fol: No Subjective Review of Systems Ms Romero is a 68-year-old female with past medical history of hypertension and arthritis diagnosed 7 months back, who presented to the ER with a chief complaint of bilateral shoulder and chest pain. Patient reports that she was diagnosed with arthritis 7 months back and since then her pain is inadequately controlled. She takes Tylenol and ibuprofen at home. She reports bilateral shoulder pain which is worse in the morning, but does note decreased as the day goes on. The pain is sharp in nature and is constant. Patient also reported chest pain which is pressure-like, left-sided, does not radiate, associated with shortness of breath, orthopnea and PND. On admission, patient was vitally stable, CBC, CMP unremarkable. Tropes WNL, BNP 19, D-dimer was 0.5. Lower extremity Doppler was unremarkable. Chest x- ray WNL. ESR was increased at 38, CRP 4. Rheumatoid factor and ANTONIO panel ordered. Bilateral shoulder x-ray revealed moderate glenohumeral osteoarthritis bilaterally. Echocardiogram showed EF 40% with global hypokinesis. Aortic root and left atrial enlargement. Past medical history: Hypertension, arthritis Home medications: Losartan 50 mg, ibuprofen, Tylenol 10/13 - Patient seen and examined at the bedside. Reports bilateral shoulder pain. IV Toradol administered. 10/14 - patient seen and examined bedside. Reports feeling better. Cardiology saw the patient, recommended GDMT and stress test. Lipid panel pending. Telemetry shows trigeminy and PVCs. Bengali-speaking; staff helped translation Objective vital signs Vital Sign Date Time Temp Pulse Resp B/P (MAP) Pulse Ox O2 Delivery O2 Flow Rate FiO2 10/14/24 11:35 96 Room Air* 0 21 10/14/24 09:49 71 114/68 10/14/24 09:00 98.3 18 98.3 Total Intake and Output 10/13/24 10/13/24 10/14/24 15:00 23:00 07:00 Intake Total 750 ml 250 ml Balance 750 ml 250 ml medications Current Medications Medications Dose Ordered Sig/Douglas Route Start Time Stop Time Status Last Admin Dose Admin Aspirin 81 mg DAILY PO 10/13/24 10:00 10/14/24 09:49 81 MG Ondansetron HCl 4 mg Q4HP PRN IV 10/12/24 15:15 10/13/24 16:23 4 MG Enoxaparin Sodium 40 mg DAILY SC 10/13/24 10:00 10/14/24 09:47 40 MG Nitroglycerin 0.4 mg Q5MINP PRN SL 10/12/24 15:15 Morphine Sulfate 2 mg Q30M PRN IV 10/12/24 15:15 Losartan Potassium 75 mg DAILY PO 10/13/24 10:00 10/14/24 09:48 75 MG Albuterol 2.5 mg Q2HPRN PRN NEB 10/12/24 15:45 Acetaminophen/ Hydrocodone Bitart 1 tab Q6HPRN PRN PO 10/12/24 20:45 Hold Morphine Sulfate 2 mg Q4HPRN PRN IV 10/12/24 20:45 10/13/24 08:15 2 MG Metoprolol Succinate 25 mg DAILY PO 10/14/24 10:00 10/14/24 09:49 25 MG Furosemide 20 mg DAILY IV 10/14/24 10:00 10/14/24 09:47 20 MG Spironolactone 25 mg DAILY PO 10/14/24 10:00 10/14/24 09:47 25 MG Empaglifozin 10 mg DAILY PO 10/14/24 10:00 10/14/24 09:47 10 MG Ketorolac Tromethamine 15 mg Q6HPRN PRN IV 10/13/24 16:00 10/18/24 15:59 Acetaminophen 650 mg Q4HP PRN PO 10/13/24 16:00 Examination Patient lying in bed, in no acute distress General: Well-built, afebrile, mucosae are moist Cardiovascular: Regular S1 and S2. No murmurs, gallops or rubs. No JVD elevation. No pedal edema Respiratory: Normal B/L air entry on room air. Clear lung sounds on auscultation Abdomen: Soft, nontender, nondistended, normoactive bowel sounds, no rebound tenderness, no organomegaly, no masses Genitourinary: Deferred MSK/skin: Mobilizes 4 limbs. Skin is dry and warm Neurological: No motor, no sensitive deficits, normal speech. Pupils are isocoric and reactive. Psych/Mental Status: A/Ox3 laboratory and microbiology Laboratory Tests 10/14/24 05:06 Test 10/14/24 05:06 Range/Units Serum Glucose 76 74-106 mg/dL Labs and/or images reviewed: Labs reviewed by me, Image(s) reviewed by me Problem List/Assessment/Plan Problem List/Assessment/Plan Intractable shoulder pain secondary to bilateral glenohumeral osteoarthritis Bilateral glenohumeral osteoarthritis Bilateral shoulder x-ray shows moderate glenohumeral osteoarthritis ESR CRP elevated IV Toradol administered Rheumatoid panel and ANTONIO pending Chest pain, rule out ACS Compensated Systolic congestive heart failure-newly diagnosed-NYHA class 2 Hypertension Echocardiogram completed, shows EF 40%. Bilateral atrial enlargement. Continue the home medication losartan 50 mg, started metoprolol 25 mg succinate daily, spironolactone 25 mg daily, Jardiance 10 mg daily Lasix 20 mg IV daily Cardiology consulted-recommended stress test Telemetry Continue aspirin and statin Ruled out DVT lower extremity Lower extremity Doppler unremarkable DVT prophylaxis: Lovenox 40 mg sc daily GERD prophylaxis: Pantoprazole 40 mg daily Plan discussed with patient in which all questions have been answered Goals of care discussed with patient for 20 minutes, full code status Unstable to transfer to [facility] Case discussed with Dr. Peace Plan discussed with: Patient, Other (Nurse) My Orders My Orders Orders - SEN ERWIN RESIDENT Procedure Category Date Status Time Metoprolol Xl PHA 10/14/24 In Process Succinate (Toprol Xl) 10:00 Furosemide Injection PHA 10/14/24 In Process (Lasix Injection) 10:00 Spironolactone PHA 10/14/24 In Process (Aldactone) 10:00 Empagliflozin PHA 10/14/24 In Process (Jardiance) 10:00 Ketorolac Injection PHA 10/13/24 In Process (Toradol Injection) 16:00 Acetaminophen Tablet PHA 10/13/24 In Process (Tylenol Tablet) 16:00 Cardiac DIET 10/13/24 Transmitted Diet-2gna,Lofat,Lochol Dinner Maintain Fluid TIFFANIE 10/13/24 In Process Restrictions 15:54 * Cardiology Consult CONS 10/14/24 Transmitted 03:34 Urine Bacterial NATALY 10/14/24 In Process Culture 08:44 Addendum Addendum Addendum I was physically present for the thorpe portions of the service provided to patient by THE RESIDENT. I have reviewed the documentation, discussed the case with resident and agree with the resident's documentation except as noted. Also the patient's clinical case was discussed with the patient's nurse. This medical document was created using an electronic medical record system with computerized dictation system. Although this document has been carefully reviewed, there might still be some phonetic and typographical errors. These areas are purely typographical due to imperfections of the software programs, and do not reflect any compromise in the patient's medical care. Late signature. Date of Service: Oct 14, 2024 Billing Provider: SANDRO PEACE MD Common Visit Codes: [id number] INP/OBS CARE(HIGH) Secondary Visit Codes: [id number] CARE PLAN 30 MINUTES (20 minutes) SEN ERWIN RESIDENT Oct 14, 2024 13:28 SANDRO PEACE MD Oct 14, 2024 23:19
[2024-10-14] MEDS: ATORVASTATIN 20 MG TAB PO ONE (23:15)
[2024-10-15 01:00] VITALS: BP 100/70; PULSE 66; RESP 17; TEMP 98.2; O2SAT 97
[2024-10-15 08:07] LABS: Rheumatoid Arthritis Factor <10.0 IU/mL (<14.0)
[2024-10-15 17:07] LABS: Anti-Centromere B Antibody <0.2 AI (0.0-0.9); Anti-Jo-1 Antibody <0.2 AI (0.0-0.9); Anti-dsDNA Antibody <1 IU/mL (0-9); Antichromatin Antibody <0.2 AI (0.0-0.9); Antiscleroderma-70 Antibody <0.2 AI (0.0-0.9); RNP Antibody 0.4 AI (0.0-0.9); Sjogren's Anti-SS-A Antibody <0.2 AI (0.0-0.9); Sjogren's Anti-SS-B Antibody <0.2 AI (0.0-0.9); Smith Antibody <0.2 AI (0.0-0.9)
[2024-10-15] MEDS ORDERED: ATORVASTATIN 20 MG TAB PO SCH (22:00)
== END 2024-10-15 02:10 | disposition short-term general hospital (02) | DRG 554 ==
LOC: ER 09:06 → OVERFLOW 15:15 → TELE-WESTW 15:17
PROVIDERS: ADMIT Internal Medicine; ATTEND Internal Medicine Gastroenterology
DX: M19.011 Primary osteoarthritis, right shoulder (principal); I24.9 Acute ischemic heart disease, unspecified; I50.22 Chronic systolic (congestive) heart failure; M19.012 Primary osteoarthritis, left shoulder; E78.5 Hyperlipidemia, unspecified; I49.3 Ventricular premature depolarization; I11.0 Hypertensive heart disease with heart failure; Z79.2 Long term (current) use of antibiotics; Z79.1 Long term (current) use of non-steroidal anti-inflammatories (NSAID); Z82.49 Family history of ischemic heart disease and other diseases of the circulatory system; Z79.82 Long term (current) use of aspirin; Z83.3 Family history of diabetes mellitus; Z79.899 Other long term (current) drug therapy
CPT/HCPCS: 36415; 71045; 73030; 80048; 80053; 81001; 82306; 82607; 83036; 83516; 83735; 83880; 84443; 84484; 85025; 85379; 85610; 85652; 85730; 86141; 86225; 86235; 86431; 87086; 93005; 93306; 93970; 99291; G0378; J1885; J2405